=== PATIENT | female | born 1985 | race Caucasian/White ===

== ENCOUNTER 2021-07-15 10:42 | Emergency (ER) | payer SELFPAY ==
[~2021-07-15 10:42] MED LIST: CYCL-394 PO; NAPR-56 PO; NO HOME MEDS
== END 2021-07-15 13:30 | disposition left against medical advice (07) ==
LOC: ER 10:43
DX: Z53.21 Procedure and treatment not carried out due to patient leaving prior to being seen by health care provider (principal)

== ENCOUNTER 2021-12-28 21:45 | Emergency (ER) | payer SELFPAY ==
[~2021-12-28] VITALS: Ht 170.2 cm; Wt 85.4 kg
[2021-12-28 22:50] VITALS: BP 145/108
== END 2021-12-28 23:15 | disposition home or self-care (01) ==
LOC: ER 21:46
DX: I10 Essential (primary) hypertension (principal); Z90.49 Acquired absence of other specified parts of digestive tract; Z72.89 Other problems related to lifestyle; Z88.5 Allergy status to narcotic agent; Z79.899 Other long term (current) drug therapy
CPT/HCPCS: 93005; 99283